=== PATIENT | male | born 1940 | race Caucasian/White ===

== ENCOUNTER 2023-11-17 10:58 | Day surgery (SDC) | payer MEDICARE ==
[2023-11-17] MEDS ORDERED: Decadron 4 MG INJ IV ONE (10:59)
[2023-11-17] MEDS ORDERED: Sodium Chloride 0.9(Preservative Free) 10 ML IJ ONE (10:59)
[2023-11-17] MEDS ORDERED: DIPRIVAN 200 MG/20 ML IV ONE (13:32)
[2023-11-17] MEDS ORDERED: Lactated Ringers 1,000 ML IV ONE (14:09)
--- NOTE | 2023-11-17 15:06 | XRAY ---
Indication: Left L3-L4 and L5-S1 transforaminal MAHESH. Intraoperative fluoroscopy provided for 1 minute 4 seconds. 5 digital spot image submitted for interpretation demonstrates posterior needle tips projecting over the expected left L3 and L5 nerve roots. Small amount of contrast injected for needle tip placement. Correlate with intraoperative findings/report. Incidental bilateral L4-L5 posterior fusion hardware and incompletely visualized left lower back electronic device.
--- NOTE | 2023-11-17 16:51 | XRAY ---
One minute and 5 seconds of fluoroscopy was used in surgery for a left L3-L4 and L5-S1 transforaminal MAHESH.
== END 2023-11-17 14:12 | disposition home or self-care (01) ==
LOC: SDC-PAIN 10:58
PROVIDERS: ATTEND Psychiatry & Neurology Pain Medicine
DX: M54.16 Radiculopathy, lumbar region (principal)
CPT/HCPCS: 64483; 64484; 72100; 77003; J1100; J2704; Q9966

== ENCOUNTER 2023-12-15 11:49 | Day surgery (SDC) | payer MEDICARE ==
[2023-12-15] MEDS ORDERED: Depo-Medrol 40 MG/ML IM ONE (11:50)
[2023-12-15] MEDS ORDERED: Sodium Chloride 0.9(Preservative Free) 10 ML IJ ONE (11:50)
[2023-12-15] MEDS ORDERED: DIPRIVAN 200 MG/20 ML IV ONE (13:41)
[2023-12-15] MEDS ORDERED: Lactated Ringers 1,000 ML IV ONE (13:58)
--- NOTE | 2023-12-15 15:12 | XRAY ---
Indication: Caudal MAHESH. Intraoperative fluoroscopy provided for 58 seconds. 2 digital spot image submitted for interpretation demonstrates caudal needle tip projecting mid sacrum. Small amount of contrast injected for needle tip placement. Correlate with intraoperative findings/report.
--- NOTE | 2023-12-15 15:18 | XRAY ---
58 seconds of fluoroscopy was used in surgery for a caudal MAHESH.
== END 2023-12-15 14:18 | disposition home or self-care (01) ==
LOC: SDC-PAIN 11:49 → EDSTATUS 13:10 → SDC-PAIN 14:18
PROVIDERS: ATTEND Psychiatry & Neurology Pain Medicine
DX: M54.16 Radiculopathy, lumbar region (principal)
CPT/HCPCS: 62323; 72220; 77003; J1030; J2704; Q9966

== ENCOUNTER 2024-01-05 14:04 | Day surgery (SDC) | payer MEDICARE ==
[2024-01-05] MEDS ORDERED: Depo-Medrol 40 MG/ML IM ONE (14:05)
[2024-01-05] MEDS ORDERED: BUPIVACAINE 0.5% VIAL IJ ONE (14:05)
[2024-01-05] MEDS ORDERED: LIDOCAINE HCL 1% 50 MG/5 ML VL PF IJ ONE (14:05)
--- NOTE | 2024-01-05 19:09 | XRAY ---
Indication: Right hip injection. Intraoperative fluoroscopy provided for 12 seconds. Single digital spot images submitted for interpretation demonstrates needle tip projecting lateral to right femur neck. Small amount of contrast injected for needle tip placement. Correlate with intraoperative findings/report.
--- NOTE | 2024-01-06 08:40 | XRAY ---
12 seconds of fluoroscopy was used in surgery for a right intra-articular hip injection.
== END 2024-01-05 16:53 | disposition home or self-care (01) ==
LOC: SDC-PAIN 14:04
PROVIDERS: ATTEND Psychiatry & Neurology Pain Medicine
DX: M16.11 Unilateral primary osteoarthritis, right hip (principal)
CPT/HCPCS: 20610; 73501; 77002; J1030; J2001; Q9966

== ENCOUNTER 2024-03-22 10:50 | Day surgery (SDC) | payer MEDICARE ==
[2024-03-22] MEDS ORDERED: Xylocaine-Mpf 2% 5 Ml Vial IJ ONE (10:51)
[2024-03-22] MEDS ORDERED: Lactated Ringers 1,000 ML IV ONE (11:40)
[2024-03-22] MEDS ORDERED: DIPRIVAN 200 MG/20 ML IV ONE (12:03)
--- NOTE | 2024-03-22 14:57 | XRAY ---
Indication: Bilateral L4-S1 MBB. Intraoperative fluoroscopy provided for 44 seconds. 4 digital spot images submitted for interpretation demonstrates posterior needle tips projecting over the expected left and right L4-S1 nerve roots. Correlate with intraoperative findings/report. Incidental bilateral L4-L5 posterior fusion hardware.
--- NOTE | 2024-03-22 17:20 | XRAY ---
44 seconds of fluoroscopy was used in surgery for a bilateral L4-S1 MBB.
== END 2024-03-22 12:38 | disposition home or self-care (01) ==
LOC: SDC-PAIN 10:50
PROVIDERS: ATTEND Psychiatry & Neurology Pain Medicine
DX: M47.816 Spondylosis without myelopathy or radiculopathy, lumbar region (principal)
CPT/HCPCS: 64493; 64494; 72020; 77002; J2704

== ENCOUNTER 2024-05-03 12:02 | Day surgery (SDC) | payer MEDICARE ==
[2024-05-03] MEDS ORDERED: DIPRIVAN 200 MG/20 ML IV ONE (13:45)
[2024-05-03] MEDS ORDERED: Lactated Ringers 1,000 ML IV ONE (14:02)
--- NOTE | 2024-05-03 16:49 | XRAY ---
Indication: Bilateral L4-S1 MBB. Intraoperative fluoroscopy provided for 29 seconds. 2 digital spot image submitted for interpretation demonstrates posterior needle tips projecting over the expected left and right L4-S1 nerve roots. Correlate with intraoperative findings/report. Incidental bilateral L4-L5 posterior fusion hardware.
--- NOTE | 2024-05-03 17:04 | XRAY ---
29 seconds of fluoroscopy was used in surgery for a bilateral L4-S1 MBB.
== END 2024-05-03 14:15 | disposition home or self-care (01) ==
LOC: SDC-PAIN 12:02
PROVIDERS: ATTEND Psychiatry & Neurology Pain Medicine
DX: M47.816 Spondylosis without myelopathy or radiculopathy, lumbar region (principal)
CPT/HCPCS: 64493; 64494; 72020; 77002; J2704

== ENCOUNTER 2024-06-28 09:05 | Day surgery (SDC) | payer MEDICARE ==
[2024-06-28] MEDS ORDERED: Depo-Medrol 40 MG/ML IM ONE (09:06)
[2024-06-28] MEDS ORDERED: LIDOCAINE HCL 1% 50 MG/5 ML VL PF IJ ONE (09:06)
[2024-06-28] MEDS ORDERED: BUPIVACAINE 0.5% VIAL IJ ONE (09:06)
[2024-06-28] MEDS ORDERED: DIPRIVAN 200 MG/20 ML IV ONE ×2 (10:31→10:50)
[2024-06-28] MEDS ORDERED: Lactated Ringers 1,000 ML IV ONE (11:57)
--- NOTE | 2024-06-28 12:55 | XRAY ---
Indication: Right L4-S1 RFA. Intraoperative fluoroscopy provided for 35 seconds. 8 digital spot image submitted for interpretation demonstrates posterior needle tips projecting over the expected right L4-S1 nerve roots. Correlate with intraoperative findings/report. Incidental bilateral L4-L5 posterior fusion hardware.
--- NOTE | 2024-06-28 14:37 | XRAY ---
35 seconds of fluoroscopy was used in surgery for a right L4-S1 RFA.
== END 2024-06-28 11:40 | disposition home or self-care (01) ==
LOC: SDC-PAIN 09:05
PROVIDERS: ATTEND Psychiatry & Neurology Pain Medicine
DX: M47.816 Spondylosis without myelopathy or radiculopathy, lumbar region (principal)
CPT/HCPCS: 64635; 64636; 72100; 77002; 99100; J2001; J2704; Q9966

== ENCOUNTER 2024-07-05 09:41 | Day surgery (SDC) | payer MEDICARE ==
[2024-07-05] MEDS ORDERED: LIDOCAINE HCL 1% 50 MG/5 ML VL PF IJ ONE (09:42)
[2024-07-05] MEDS ORDERED: Depo-Medrol 40 MG/ML IM ONE (09:42)
[2024-07-05] MEDS ORDERED: BUPIVACAINE 0.5% VIAL IJ ONE (09:42)
[2024-07-05] MEDS ORDERED: DIPRIVAN 200 MG/20 ML IV ONE (11:02)
[2024-07-05] MEDS ORDERED: Lactated Ringers 1,000 ML IV ONE (12:11)
--- NOTE | 2024-07-05 13:07 | XRAY ---
Indication: Left L4-S1 RFA. Intraoperative fluoroscopy provided for 41 seconds. 6 digital spot images submitted for interpretation demonstrates posterior needle tips projecting over the expected left L4-S1 nerve roots. Correlate with intraoperative findings/report. Incidental bilateral L4-L5 posterior fusion hardware.
--- NOTE | 2024-07-05 15:00 | XRAY ---
41 seconds of fluoroscopy was used in surgery for a left L4-S1 RFA.
== END 2024-07-05 11:45 | disposition home or self-care (01) ==
LOC: SDC-PAIN 09:41
PROVIDERS: ATTEND Psychiatry & Neurology Pain Medicine
DX: M47.816 Spondylosis without myelopathy or radiculopathy, lumbar region (principal); Z79.899 Other long term (current) drug therapy
CPT/HCPCS: 64635; 64636; 72100; 77002; 82947; 99100; J2001; J2704

== ENCOUNTER 2024-08-31 10:52 | Day surgery (SDC) | payer MEDICARE ==
[2024-08-31] MEDS ORDERED: BUPIVACAINE 0.5% VIAL IJ ONE (10:53)
[2024-08-31] MEDS ORDERED: Depo-Medrol 40 MG/ML IM ONE (10:53)
[2024-08-31] MEDS ORDERED: DIPRIVAN 200 MG/20 ML IV ONE (11:45)
--- NOTE | 2024-08-31 14:21 | XRAY ---
Indication: Left cluneal nerve block. Intraoperative fluoroscopy provided for 15 seconds. Single digital spot image submitted for interpretation demonstrates posterior needle tips projecting over left iliac crest. Correlate with intraoperative findings/report. Incidental incompletely visualized lower lumbar fusion hardware.
--- NOTE | 2024-08-31 15:31 | XRAY ---
15 seconds of fluoroscopy was used in surgery for a left cluneal nerve block.
== END 2024-08-31 12:34 | disposition home or self-care (01) ==
LOC: SDC-PAIN 10:52
PROVIDERS: ATTEND Psychiatry & Neurology Pain Medicine
DX: M54.50 Low back pain, unspecified (principal)
CPT/HCPCS: 64450; 72170; 77002; J2704

== ENCOUNTER 2024-10-11 08:10 | Day surgery (SDC) | payer MEDICARE ==
[2024-10-11] MEDS ORDERED: Sodium Chloride 0.9(Preservative Free) 10 ML IJ ONE (08:11)
[2024-10-11] MEDS ORDERED: LIDOCAINE HCL 1% AMPUL 5 ML IJ ONE (08:11)
[2024-10-11] MEDS ORDERED: Depo-Medrol 40 MG/ML IM ONE (08:11)
[2024-10-11] MEDS ORDERED: DIPRIVAN 200 MG/20 ML IV ONE (09:11)
--- NOTE | 2024-10-11 11:05 | XRAY ---
Indication: Caudal MAHESH. Intraoperative fluoroscopy provided for 24 seconds. 3 digital spot image submitted for interpretation demonstrates caudal needle tip projecting mid sacrum. Small amount of contrast injected for needle tip placement.. Correlate with intraoperative findings/report. Incidental incompletely visualized lower lumbar fusion hardware
--- NOTE | 2024-10-11 12:15 | XRAY ---
24 seconds of fluoroscopy was used in surgery for a caudal MAHESH.
== END 2024-10-11 09:50 | disposition home or self-care (01) ==
LOC: SDC-PAIN 08:10
PROVIDERS: ATTEND Psychiatry & Neurology Pain Medicine
DX: M54.16 Radiculopathy, lumbar region (principal)
CPT/HCPCS: 62323; 72220; 77003; J2704; Q9966